=== PATIENT | male | born 2000 | race Caucasian/White ===

== ENCOUNTER 2022-01-25 10:38 | Emergency (ER) | payer OTHER ==
[~2022-01-25] VITALS: Ht 175.3 cm; Wt 75.0 kg
[2022-01-25] MEDS ORDERED: NS 1,000 ML IV ONE (11:30)
[2022-01-25] MEDS ORDERED: PANTOPRAZOLE 40MG VIAL (C9113 PER 1) IV ONE (11:30)
[2022-01-25] MEDS ORDERED: KETOROLAC 30 MG/ML 1ML VIAL IV ONE (11:30)
[2022-01-25 12:25] LABS: BASO % 0.4 % (0.0-1.0); EOS # 0.2 10^3/uL (0.0-0.5); EOS % 2.2 % (0.0-3.0); HEMATOCRIT 45.7 % (42.0-52.0); HEMOGLOBIN 15.6 g/dl (13.5-17.5); LYMPH # 1.9 10^3/uL (1.5-5.0); LYMPH % 23.5 % (24.0-44.0); MEAN CORPUSCULAR HEMOGLOBIN 29.5 pg (27.0-33.0); MEAN CORPUSCULAR HGB CONC 34.1 g/dl (32.0-36.5); MEAN CORPUSCULAR VOLUME 86.4 fl (80.0-96.0); MONO # 0.5 10^3/uL (0.0-0.8); MONO % 5.9 % (2.0-8.0); NEUTROPHILS # 5.6 10^3/uL (1.5-8.5); NEUTROPHILS % 67.8 % (36.0-66.0); PLATELET COUNT, AUTOMATED 214 10^3/uL (150-450); RED BLOOD COUNT 5.29 10^6/uL (4.30-6.10); WHITE BLOOD COUNT 8.3 10^3/uL (4.0-10.0)
[2022-01-25 12:35] LABS: PROTHROMBIN TIME 14.6 SECONDS (12.7-14.5)
[2022-01-25 12:36] LABS: PARTIAL THROMBOPLASTIN TIME 22.4 SECONDS (25.9-37.0)
[2022-01-25 12:53] LABS: D-DIMER QUANT > 4000.0 ng/ml (<500)
[2022-01-25 12:57] LABS: ALBUMIN 4.1 GM/DL (3.2-5.2); ALT/SGPT 19 U/L (12-78); BILIRUBIN,DIRECT 0.3 MG/DL (0.0-0.2); BILIRUBIN,TOTAL 1.5 MG/DL (0.2-1.0); C REACTIVE PROTEIN QUANTITATIV < 0.30 MG/DL (0.00-0.30); FREE T4 1.07 NG/DL (0.76-1.46); LIPASE 71 U/L (73-393); NT-PRO BNP < 5 PG/ML (<125)
[2022-01-25 13:03] LABS: ERYTHROCYTE SEDIMENTATION RATE 1 mm/hr (0-15)
[2022-01-25] MEDS ORDERED: ISOVUE-370 76% 100ML VIAL As Ordered ONE (13:15)
[2022-01-25 14:18] VITALS: BP 117/56
[2022-01-25] MEDS ORDERED: KETO10TAB PO (15:04)
[2022-01-25] MEDS ORDERED: OMEP40CA4 PO (15:04)
== END 2022-01-25 15:37 | disposition home or self-care (01) ==
LOC: EDBD 10:38 → M ED 10:38
DX: R07.89 Other chest pain (principal); R06.02 Shortness of breath; R22.41 Localized swelling, mass and lump, right lower limb; R10.9 Unspecified abdominal pain; J02.9 Acute pharyngitis, unspecified; R51.9 Headache, unspecified
CPT/HCPCS: 71046; 71275; 76705; 80047; 80076; 82550; 83690; 83880; 84439; 84443; 84484; 85025; 85379; 85610; 85652; 85730; 86140; 87426; 87880; 93005; 96361; 96374; 96375; 99284; C9113; J1885; Q9967